=== PATIENT | female | born 1955 | race Two or more races ===

== ENCOUNTER → 2016-11-29 | Outpatient (CLI) | payer BC ==
[~2016-11-29] MED LIST: ADENOSINE 53 MG in GIVE UN-DILUTED 0 ML IV ONE; ADENOSINE 90 MG/30 ML INJ IV ONE
[2016-11-29 13:05] LABS: Basophils # (auto) 0 uL; Basophils % (auto) 0.6 % (0.0-2.0); Eosinophils # (auto) 0.1 uL; Eosinophils % (auto) 1.9 % (0.0-7.0); Hematocrit 39.9 % (36.0-46.0); Hemoglobin 13.5 g/dL (12.2-16.2); Lymphocytes # (auto) 2.5 uL; Lymphocytes % (auto) 33.7 % (10.0-50.0); Mean Corpuscular Hemoglobin 29.6 pg (28.0-32.0); Mean Corpuscular Hgb Conc. 33.9 g/dL (32.0-36.0); Mean Corpuscular Volume 87.3 fL (80.0-100.0); Mean Platelet Volume 7.7 fL (6.9-10.8); Monocytes # (auto) 0.5 uL; Monocytes % (auto) 6.3 % (0.0-12.0); Neutrophils # (auto) 4.2 uL; Neutrophils % (auto) 57.5 % (37.0-80.0); Platelet Count (auto) 290 10^3/uL (140-450); Red Cell Distribution Width 14.5 % (11.8-14.3); White Blood Cell 7.4 10^3/uL (4.4-10.8)
[2016-11-29 13:07] LABS: Urine Bilirubin Negative (Negative); Urine Blood Negative /uL (Negative); Urine Color Yellow (Yellow); Urine Glucose Normal (Normal); Urine Ketone Negative (Negative); Urine Nitrite Negative (Negative); Urine Urobilinogen Normal (Negative)
[2016-11-29 13:26] LABS: BUN/Creatinine Ratio 16.7; Bilirubin, Direct 0.1 mg/dL (0-0.2); Bilirubin, Total 0.4 mg/dL (0.2-1.0); Calcium 9.5 mg/dL (8.5-10.1); Potassium 3.7 mmol/L (3.5-5.1); Total Protein 7.8 g/dL (6.4-8.2)
== END | disposition home or self-care (01) ==
LOC: Rad HDHVI 08:13
PROVIDERS: ATTEND Internal Medicine Cardiovascular Disease
DX: I10 Essential (primary) hypertension (principal); E78.00 Pure hypercholesterolemia, unspecified; K74.1 Hepatic sclerosis; E11.9 Type 2 diabetes mellitus without complications; E03.9 Hypothyroidism, unspecified; D64.9 Anemia, unspecified; E55.9 Vitamin D deficiency, unspecified; N39.0 Urinary tract infection, site not specified
CPT/HCPCS: 36415; 78452; 80048; 80061; 80076; 81003; 82306; 82607; 83036; 84439; 84443; 85025; 93005; 93306; 96374; 96375; A9500; J0153

== ENCOUNTER → 2017-01-09 | Outpatient (CLI) | payer BC | END | disposition home or self-care (01) | LOC: Rad HDHVI 08:02 | PROVIDERS: ATTEND Internal Medicine Cardiovascular Disease | DX: Z13.6 Encounter for screening for cardiovascular disorders (principal) | CPT/HCPCS: 76770 ==

== ENCOUNTER → 2017-03-20 | Outpatient (CLI) | payer BC ==
[2017-03-20 12:26] LABS: Basophils # (auto) 0 uL; Basophils % (auto) 0.4 % (0.0-2.0); Eosinophils # (auto) 0.2 uL; Hematocrit 41.3 % (36.0-46.0); Hemoglobin 13.8 g/dL (12.2-16.2); Lymphocytes # (auto) 2.4 uL; Lymphocytes % (auto) 29.3 % (10.0-50.0); Mean Corpuscular Hemoglobin 29.5 pg (28.0-32.0); Mean Corpuscular Hgb Conc. 33.5 g/dL (32.0-36.0); Monocytes # (auto) 0.4 uL; Monocytes % (auto) 4.9 % (0.0-12.0); Neutrophils # (auto) 5.2 uL; Neutrophils % (auto) 63.4 % (37.0-80.0); Nucleated Red Blood Cells % 0.7 %; Platelet Count (auto) 291 10^3/uL (140-450); Red Cell Distribution Width 14.9 % (11.8-14.3); White Blood Cell 8.3 10^3/uL (4.4-10.8)
[2017-03-20 12:41] LABS: BUN/Creatinine Ratio 15.6; Bilirubin, Total 0.3 mg/dL (0.2-1.0); Calcium 9.4 mg/dL (8.5-10.1); Potassium 4.1 mmol/L (3.5-5.1); Total Protein 7.7 g/dL (6.4-8.2)
[2017-03-20 12:45] LABS: Free T4 (Free Thyroxine) 0.99 ng/dL (0.89-1.76)
== END | disposition home or self-care (01) ==
LOC: LAB 08:03
PROVIDERS: ATTEND Internal Medicine Cardiovascular Disease
DX: E78.00 Pure hypercholesterolemia, unspecified (principal); D64.9 Anemia, unspecified; I10 Essential (primary) hypertension; E11.9 Type 2 diabetes mellitus without complications; E03.9 Hypothyroidism, unspecified; E55.9 Vitamin D deficiency, unspecified; D51.9 Vitamin B12 deficiency anemia, unspecified; N39.0 Urinary tract infection, site not specified
CPT/HCPCS: 36415; 80053; 80061; 82306; 82607; 83036; 84439; 84443; 85025

== ENCOUNTER → 2017-04-23 | Outpatient (CLI) | payer BC | END | disposition home or self-care (01) | LOC: Rad HDHVI 08:21 | PROVIDERS: ATTEND Internal Medicine Cardiovascular Disease | DX: R07.81 Pleurodynia (principal); R09.1 Pleurisy | CPT/HCPCS: 93970 ==

== ENCOUNTER 2018-02-22 18:13 | Inpatient (IN) | payer BC ==
[~2018-02-22] VITALS: Ht 157.5 cm; Wt 67.3 kg
[2018-02-22 19:24] LABS: Basophils # (auto) 0 uL; Basophils % (auto) 0.2 % (0.0-2.0); Eosinophils # (auto) 0 uL; Eosinophils % (auto) 0.1 % (0.0-7.0); Hematocrit 36.8 % (36.0-46.0); Hemoglobin 12.5 g/dL (12.2-16.2); Lymphocytes # (auto) 0.8 uL; Lymphocytes % (auto) 6.1 % (10.0-50.0); Mean Corpuscular Hemoglobin 29.6 pg (28.0-32.0); Mean Corpuscular Hgb Conc. 33.9 g/dL (32.0-36.0); Mean Corpuscular Volume 87.2 fL (80.0-100.0); Monocytes # (auto) 0.1 uL; Monocytes % (auto) 1.2 % (0.0-12.0); Neutrophils # (auto) 11.5 uL; Neutrophils % (auto) 92.4 % (37.0-80.0); Platelet Count (auto) 239 10^3/uL (140-450); Red Blood Cells 4.21 10^6/uL (4.0-5.20); Red Cell Distribution Width 14.5 % (11.8-14.3); White Blood Cell 12.5 10^3/uL (4.4-10.8)
[2018-02-22 19:33] LABS: Albumin 3.7 g/dL (3.4-5.0); Anion Gap 5 (5-15); Blood Urea Nitrogen 14 mg/dL (7-18); Calcium 8.7 mg/dL (8.5-10.1); Carbon Dioxide 26 mmol/L (21-32); Chloride 104 mmol/L (98-107); Glucose 103 mg/dL (74-106); Potassium 3.7 mmol/L (3.5-5.1); Sodium 135 mmol/L (136-145)
[2018-02-22 19:40] LABS: Alanine Aminotransferase 35 U/L (13-56); Alkaline Phosphatase 56 U/L (45-117); Aspartate Aminotransferase 21 U/L (15-37); BUN/Creatinine Ratio 12.6; Bilirubin, Total 0.8 mg/dL (0.2-1.0); GFR African American 64 mL/min; GFR Non-African American 53 mL/min
[2018-02-22 21:17] LABS: Urine Bacteria MANY /hpf (None Seen); Urine Blood Negative /uL (Negative); Urine Specific Gravity 1.006 (1.001-1.035); Urine WBC 4 /hpf (0 - 5)
[2018-02-22] MEDS ORDERED: IOHEXOL 350 MG/ML 100ML IJ ONE (21:18)
[2018-02-22] MEDS ORDERED: ENOXAPARIN SOD 60 MG/0.6 ML SYRINGE SC ONE (22:45)
[2018-02-22] MEDS ORDERED: ACETAMINOPHEN/CODEINE#3 (300/30mg) TAB PO ONE (23:00)
[2018-02-23] MEDS ORDERED: cefTRIAXone 1GM/50ML D5W 50 ML IV ONE ×2 (03:15→13:15)
[2018-02-23] MEDS ORDERED: HYDROcodone-ACET 5/325MG TAB PO PRN (03:15)
[2018-02-23] MEDS ORDERED: ONDANSETRON HCL 4 MG/2 ML VIAL IV PRN (03:15)
[2018-02-23] MEDS: ACETAMINOPHEN 500 MG TAB PO PRN ×2 (04:07→17:38)
[2018-02-23 04:13] LABS: Basophils # (auto) 0 uL; Basophils % (auto) 0.2 % (0.0-2.0); Eosinophils # (auto) 0 uL; Eosinophils % (auto) 0.3 % (0.0-7.0); Hematocrit 38.2 % (36.0-46.0); Hemoglobin 12.8 g/dL (12.2-16.2); Lymphocytes # (auto) 2.7 uL; Lymphocytes % (auto) 19.8 % (10.0-50.0); Mean Corpuscular Hemoglobin 29.5 pg (28.0-32.0); Mean Corpuscular Hgb Conc. 33.6 g/dL (32.0-36.0); Mean Corpuscular Volume 87.9 fL (80.0-100.0); Monocytes # (auto) 0.3 uL; Monocytes % (auto) 2.5 % (0.0-12.0); Neutrophils # (auto) 10.5 uL; Neutrophils % (auto) 77.2 % (37.0-80.0); Platelet Count (auto) 246 10^3/uL (140-450); Red Blood Cells 4.35 10^6/uL (4.0-5.20); Red Cell Distribution Width 14.9 % (11.8-14.3); White Blood Cell 13.6 10^3/uL (4.4-10.8)
[2018-02-23 04:17] VITALS: BP 107/57
[2018-02-23 04:30] LABS: BUN/Creatinine Ratio 12.1; Calcium 8.8 mg/dL (8.5-10.1); Potassium 3.3 mmol/L (3.5-5.1)
[2018-02-23] MEDS ORDERED: HYDR12.56 PO (05:53)
[2018-02-23] MEDS ORDERED: ATEN-60 PO (05:53)
[2018-02-23] MEDS ORDERED: INFLUENZA QUAD 2018-2019 0.5 ML SYRG IM ONE (06:15)
[2018-02-23 09:00] VITALS: BP 81/46
[2018-02-23 12:55] VITALS: BP 119/71
[2018-02-23 16:49] VITALS: BP 117/65
[2018-02-23 22:00] VITALS: BP 108/61
[2018-02-24] MEDS: ACETAMINOPHEN 500 MG TAB PO PRN (00:48)
[2018-02-24 05:00] VITALS: BP 125/70
[2018-02-24] MEDS ORDERED: cefTRIAXone 1GM/50ML D5W 50 ML IV SCH (09:00)
[2018-02-24 09:20] VITALS: BP 122/64
[2018-02-24 11:58] VITALS: BP 121/71
== END 2018-02-24 12:43 | disposition home or self-care (01) | DRG 189 ==
LOC: ER 18:16 → WEST WING 02-23 03:15
PROVIDERS: ADMIT Nurse Practitioner Family; ATTEND Family Medicine
DX: J96.01 Acute respiratory failure with hypoxia (principal); N39.0 Urinary tract infection, site not specified; I12.9 Hypertensive chronic kidney disease with stage 1 through stage 4 chronic kidney disease, or unspecified chronic kidney disease; N18.9 Chronic kidney disease, unspecified; Z87.891 Personal history of nicotine dependence; Z87.442 Personal history of urinary calculi; E11.22 Type 2 diabetes mellitus with diabetic chronic kidney disease; I95.9 Hypotension, unspecified; Z88.1 Allergy status to other antibiotic agents; Z88.0 Allergy status to penicillin
CPT/HCPCS: 36415; 36600; 70450; 71046; 74176; 76775; 78582; 80048; 80053; 81001; 82805; 83735; 83880; 84484; 85025; 85379; 87040; 87086; 87804; 90674; 93005; 93306; 93970; 94761; 96372; 96374; G0378; J0696

== ENCOUNTER → 2018-03-13 | Outpatient (CLI) | payer BC ==
[~2018-03-13] MED LIST changes: -ADENOSINE 53 MG in GIVE UN-DILUTED 0 ML IV ONE; -ADENOSINE 90 MG/30 ML INJ IV ONE; +ATEN-60 PO; +HYDR12.56 PO
[2018-03-13 12:15] LABS: Urine Blood Negative /uL (Negative); Urine Specific Gravity 1.007 (1.001-1.035)
[2018-03-13 12:18] LABS: Basophils # (auto) 0.1 uL; Basophils % (auto) 0.9 % (0.0-2.0); Eosinophils # (auto) 0.1 uL; Eosinophils % (auto) 2.3 % (0.0-7.0); Hematocrit 40.5 % (36.0-46.0); Hemoglobin 13.6 g/dL (12.2-16.2); Lymphocytes # (auto) 2.2 uL; Mean Corpuscular Hemoglobin 29.7 pg (28.0-32.0); Mean Corpuscular Hgb Conc. 33.7 g/dL (32.0-36.0); Mean Corpuscular Volume 88.3 fL (80.0-100.0); Monocytes # (auto) 0.3 uL; Monocytes % (auto) 4.7 % (0.0-12.0); Neutrophils # (auto) 3.6 uL; Neutrophils % (auto) 57.1 % (37.0-80.0); Nucleated Red Blood Cells % 0.5 %; Platelet Count (auto) 340 10^3/uL (140-450); Red Blood Cells 4.59 10^6/uL (4.0-5.20); Red Cell Distribution Width 14.9 % (11.8-14.3); White Blood Cell 6.3 10^3/uL (4.4-10.8)
[2018-03-13 12:32] LABS: Free T4 (Free Thyroxine) 1.21 ng/dL (0.89-1.76)
[2018-03-13 12:56] LABS: Potassium 4.1 mmol/L (3.5-5.1)
[2018-03-13 13:08] LABS: Albumin 3.9 g/dL (3.4-5.0); BUN/Creatinine Ratio 14.6; Bilirubin, Total 0.5 mg/dL (0.2-1.0); Calcium 9.2 mg/dL (8.5-10.1); Total Protein 7.5 g/dL (6.4-8.2)
== END | disposition home or self-care (01) ==
LOC: LAB 07:57
PROVIDERS: ATTEND Internal Medicine
DX: E03.9 Hypothyroidism, unspecified (principal); E11.9 Type 2 diabetes mellitus without complications; E55.9 Vitamin D deficiency, unspecified; D51.9 Vitamin B12 deficiency anemia, unspecified; N39.0 Urinary tract infection, site not specified
CPT/HCPCS: 36415; 80053; 80061; 81003; 82306; 82607; 83036; 84439; 84443; 85025; 87086

== ENCOUNTER 2023-10-03 07:06 | Day surgery (SDC) | payer OTHER ==
[~2023-10-03] VITALS: Ht 157.5 cm; Wt 61.2 kg
[~2023-10-03 07:06] MED LIST changes: +ASPI81CH59 PO; +ATOR-507 PO; +HYDR-3682 PO; -HYDR12.56 PO; +HYDR12.59 PO; +MAGN241.4 PO; +NIFE1TAB31 PO; +[UNRECOGNIZED DRUG - CODE] PO
[2023-10-03 07:24] VITALS: TEMP 97.3
[2023-10-03] MEDS ORDERED: MIDAZOLAM HCL 2MG/2ML 2ml VIAL (1mg/ml) ONE (08:39)
[2023-10-03] MEDS ORDERED: MEPERIDINE HCL (25 MG/ML) 1ML VIAL ONE (08:39)
[2023-10-03] MEDS ORDERED: fentaNYL CITRATE 100 MCG/2 ML VL ONE (08:39)
[2023-10-03] MEDS ORDERED: DexAMETHasone SOD PHOS 10MG/1ML VIAL INJ ONE (08:40)
[2023-10-03] MEDS ORDERED: PROPOFOL 10 MG/ML 20 ML IV ONE (08:40)
[2023-10-03] MEDS ORDERED: KETAMINE 50mg/ML 1ml syringe ONE (08:41)
[2023-10-03 10:01] VITALS: O2SAT 98
[2023-10-03 10:36] VITALS: BP 115/62; PULSE 74; RESP 14; O2SAT 97
== END 2023-10-03 10:54 | disposition home or self-care (01) ==
LOC: GI 07:06
PROVIDERS: ATTEND Internal Medicine Gastroenterology
DX: R93.3 Abnormal findings on diagnostic imaging of other parts of digestive tract (principal); D12.5 Benign neoplasm of sigmoid colon; K57.30 Diverticulosis of large intestine without perforation or abscess without bleeding; I12.9 Hypertensive chronic kidney disease with stage 1 through stage 4 chronic kidney disease, or unspecified chronic kidney disease; N18.9 Chronic kidney disease, unspecified; Z79.899 Other long term (current) drug therapy; Z90.49 Acquired absence of other specified parts of digestive tract; Z90.710 Acquired absence of both cervix and uterus; Z87.891 Personal history of nicotine dependence; Z86.73 Personal history of transient ischemic attack (TIA), and cerebral infarction without residual deficits; Z86.010 Personal history of colon polyps; Z98.890 Other specified postprocedural states; Z88.0 Allergy status to penicillin; Z88.1 Allergy status to other antibiotic agents
CPT/HCPCS: 45380; 88305; J1100; J2175; J2250; J2704; J3010; J7030

== ENCOUNTER 2024-10-11 14:09 | Inpatient (IN) | payer OTHER ==
[~2024-10-11] VITALS: Ht 157.5 cm; Wt 63.0 kg
[2024-10-11 15:05] LABS: Hematocrit 38.8 % (36.0-46.0); Hemoglobin 13.1 g/dL (12.2-16.2); Mean Corpuscular Hemoglobin 28.7 pg (28.0-32.0); Mean Corpuscular Volume 84.7 fL (80.0-100.0); Nucleated Red Blood Cells % 0.0 %
[2024-10-11 15:10] LABS: Chloride 106 mmol/L (98-107); Potassium 4.0 mmol/L (3.5-5.1); Sodium 140 mmol/L (136-145)
[2024-10-11 15:11] LABS: Anion Gap 9 (5-15); Calcium 9.7 mg/dL (8.7-10.4); Carbon Dioxide 25 mmol/L (20-31)
[2024-10-11 15:16] LABS: BUN/Creatinine Ratio 11.5 (10.0-20.0); Blood Urea Nitrogen 13 mg/dL (9-23); Glucose 91 mg/dL (74-106)
--- NOTE | 2024-10-11 15:53 | ED.PDOC ---
General HPI Comments 69 y/o F, with PMHx of kidney stones, CKF, and HTN presents to the ED for CC of flank pain. Patient states, she has been experiencing right sided flank pain x1week. Patient reports, that she was seen at [id number] ago by and had a Lithotripsy to remove stones in the right kidney. Patient relays, she was seen at a follow up appointment and told to have a 7mm stone in the right kidney. Patient denies hematuria, dysuria, nausea, vomiting, or fever. No other symptoms or modifying factors present at this time. Chief Complaint: Flank Pain Time Seen by MD: 15:30 Primary Care Provider: DR. MARCOS Reviewed notes: Nurses Notes, Medications, Allergies Allergies: Coded Allergies: Erythromycin (Verified Allergy, Unknown, 11/29/16) Penicillins (Verified Allergy, Unknown, 11/29/16) Statins (Verified Allergy, Unknown, 02/24/18) Home Meds Reported Medications Riboflavin (Vitamin B-2) 100 Mg Tab, 400 MG PO QPM, TAB 10/02/23 Aspirin (Aspirin Low Dose) 81 Mg Chw, 81 MG PO DAILY, TAB.CHEW 10/02/23 Atorvastatin Calcium (Lipitor) 40 Mg Tab, 40 MG PO QPM, TAB 10/02/23 Magnesium Oxide (Mag-Ox) 400 Mg Tb, 400 MG PO DAILY, TAB 10/02/23 Hydroxyzine Hcl (Hydroxyzine Hcl) 25 Mg Tab, 25 MG PO UD, TAB 10/02/23 Nifedipine (Nifedipine Er) 30 Mg Tab, 30 MG PO QAM, TAB 10/02/23 Hydrochlorothiazide (Hydrochlorothiazide) 12.5 Mg Cap, 12.5 MG PO DAILY for 30 Days, MG 02/23/18 Atenolol (Atenolol) 25 Mg Tab, 25 MG PO DAILY for 30 Days, MG 02/23/18 Information Source: Patient Mode of Arrival: Ambulatory Severity: Moderate Timing: Weeks Duration: Since onset Prehospital treatment: None Onset: Spontaneous History of: None Location: (R) Flank, (L)Flank Modifying factors: None associated signs and symptoms: Flank Pain Past Medical History PAST MEDICAL HISTORY: CKF, HTN Surgical History: Denies all surgeries PAYMENT POSTER History: Denies all PAYMENT POSTER Hx Family History Family History: Unknown Social History Smoker: Non-Smoker Alcohol: Denies ETOH Use Drugs: Denies Drug Use Lives In: Home Constitutional: denies: chills, diaphoresis, fatigue, fever, malaise, sweats, weakness, others EENTM: denies: blurred vision, double vision, ear bleeding, ear discharge, ear drainage, ear pain, ear ringing, eye pain, eye redness, hearing loss, mouth pain, mouth swelling, nasal discharge, nose bleeding, nose congestion, nose pain, photophobia, tearing, throat pain, throat swelling, voice changes, others Respiratory: denies: cough, hemoptysis, orthopnea, SOB at rest, shortness of breath, SOB with excertion, stridor, wheezing, others Cardiovascular: denies: chest pain, dizzy spells, diaphoresis, Dyspnea on exertion, edema, irregular heart beat, left arm pain, lightheadedness, palpitations, PND, syncope, others Gastrointestinal: denies: abdomen distended, abdominal pain, blood streaked bowels, constipated, diarrhea, dysphagia, difficulty swallowing, hematemesis, melena, nausea, poor appetite, poor fluid intake, rectal bleeding, rectal pain, vomiting, others Genitourinary: reports: flank pain; denies: abnormal vagina bleeding, burning, dyspareunia, dysuria, frequency, hematuria, incontinence, pain, , vagina discharge, urgency, others Neurological: denies: dizziness, fainting, headache, left sided numbness, left sided weakness, numbness, paresthesia, pre-existing deficit, right sided numbness, right sided weakness, seizure, speech problems, tingling, tremors, weakness, others Musculoskeletal: denies: back pain, gout, joint pain, joint swelling, muscle pain, muscle stiffness, neck pain, others Integumetry: denies: bruises, change in color, change in hair/nails, dryness, laceration, lesions, lumps, rash, wounds, others Allergic/Immunocompromised: denies: Difficulty Healing, Frequent Infections, Hives, Itching, others Hematologic/Lymphatic: denies: anemia, blood clots, easy bleeding, easy bruising, swollen glands, others Endocrine: denies: excessive hunger, excessive sweating, excessive thirst, excessive urination, flushing, intolerance to cold, intolerance to heat, unexplained weight gain, unexplained weight loss, others Psychiatric: denies: anxiety, bipolar disorder, depression, hopeless, panic disorder, schizophrenia, sleepless, suicidal, others All Other Systems: Reviewed and Negative Physical Exam General Appearance: Moderate Distress HEENT: Normal ENT Inspection, Pharynx Normal, TMs Normal Neck: Full Range of Motion, Non-Tender, Normal, Normal Inspection Respiratory: Chest Non-Tender, Lungs Clear, No Accessory Muscle Use, No Respiratory Distress, Normal Breath Sounds Cardiovascular: No Edema, No JVD, No Murmur, No Gallop, Normal Peripheral Pulses, Regular Rate/Rhythm Breast Exam: Deferred Gastrointestinal: No Organomegaly, Non Tender, No Pulsatile Mass, Normal Bowel Sounds, Soft Genitalia: Deferred Pelvic: Deferred Rectal: Deferred Extremities: No calf tenderness, Normal capillary refill, Normal inspection, Normal range of motion, Non-tender, No pedal edema Musculoskeletal : Apperance: Normal Neurologic: Alert, irish moss operator II-XII nml as Tested, No Motor Deficits, Normal Affect, Normal Mood, No Sensory Deficits Cerebellar Function: Normal Reflexes: Normal Skin: Dry, Normal Color, Warm Peripheral Pulses: 3+ Radial (R), 3+ Radial (L) Lymphatic: No Adenopathy Was a procedure done? Was a procedure done?: No Differential Diagnosis Kidney stone (Female): Pyelonephritis, Urinary obstruction, Urolithiasis Kidney stone (Male): N/A Penile/Scrotal: N/A Urinary Problem (Male): N/A Urinary Problem (Female): UTI X-Ray, Labs, Meds, VS Vital Signs Date Time Temp Pulse Resp B/P (MAP) Pulse Ox O2 Delivery O2 Flow Rate FiO2 10/11/24 14:10 97.9 84 16 144/97 96 97.9 Lab Test 10/11/24 14:44 Range/Units White Blood Count 9.5 4.4-10.8 10^3/uL Red Blood Count 4.58 4.0-5.20 10^6/uL Hemoglobin 13.1 12.2-16.2 g/dL Hematocrit 38.8 36.0-46.0 % Mean Corpuscular Volume 84.7 80.0-100.0 fL Mean Corpuscular Hemoglobin 28.7 28.0-32.0 pg Mean Corpuscular Hemoglobin Concent 33.9 32.0-36.0 g/dL Red Cell Distribution Width 14.4 H 11.8-14.3 % Platelet Count 329 140-450 10^3/uL Mean Platelet Volume 6.8 L 6.9-10.8 fL Neutrophils (%) (Auto) 58.5 37.0-80.0 % Lymphocytes (%) (Auto) 32.6 10.0-50.0 % Monocytes (%) (Auto) 5.3 0.0-12.0 % Eosinophils (%) (Auto) 2.7 0.0-7.0 % Basophils (%) (Auto) 0.9 0.0-2.0 % Neutrophils # (Auto) 5.5 1.6-8.6 10 ^3/uL Lymphocytes # (Auto) 3.1 0.4-5.4 10 ^3/uL Monocytes # (Auto) 0.5 0-1.3 10 ^3/uL Eosinophils # (Auto) 0.3 0-0.8 10 ^3/uL Basophils # (Auto) 0.1 0-0.2 10 ^3/uL Nucleated Red Blood Cells 0.0 % Sodium Level 140 136-145 mmol/L Potassium Level 4.0 3.5-5.1 mmol/L Chloride Level 106 98-107 mmol/L Carbon Dioxide Level 25 20-31 mmol/L Anion Gap 9 5-15 Blood Urea Nitrogen 13 9-23 mg/dL Creatinine 1.13 H 0.550-1.02 mg/dL Glomerular Filtration Rate Calc 53 >90 mL/min BUN/Creatinine Ratio 11.5 10.0-20.0 Serum Glucose 91 74-106 mg/dL Calcium Level 9.7 8.7-10.4 mg/dL Patient alert. Complaining of flank pain. History of kidney stone. Vitals stable. Answering questions. Has been seen by Urology. Continues to have pain. Establish intravenous access. Was given fluids. Was given Toradol. Explained to the patient. Continue monitoring. Time of 1ST Reevaluation: 14:00 Reevaluation 1ST: Unchanged Patient Education/Counseling: Diagnosis, Treatment Family Education/Counseling: No Family Present SEPSIS Sepsis Screen Date sepsis recognized/suspect: Oct 11, 2024 Time Sepsis recognized/suspect: 1412 Recent Procedure: No On Antibiotic Therapy: No Respiratory Rate >20: No Heart Rate >90: No Temp<36 C (96.8 F) or >38.3 C: No SBP <90 or MAP <65 mmHG: No New Acute Mental Status Change: No Is the patient on CPAP, BIPAP,: No Physician Orders Urinalysis (10/11/24 14:15) Vital Signs Date Time Temp Pulse Resp B/P (MAP) Pulse Ox O2 Delivery O2 Flow Rate FiO2 10/11/24 14:10 97.9 84 16 144/97 96 97.9 Laboratory Tests Test 10/11/24 14:44 White Blood Count 9.5 10^3/uL (4.4-10.8) Departure 1 Departure Time of Disposition: 17:08 Impression: Primary Impression: Kidney stone Additional Impression: Acute abdominal pain Disposition: ADMITTED INPATIENT Admit to: Med Surg Condition: Guarded Critical Care Note Critical Care Time?: No Stability Stability form required: No Heart Score Heart Score: Heart Score Response (Comments) Value History N/A 0 EKG N/A 0 Age N/A 0 Risk Factors N/A 0 Troponin N/A 0 Total 0 I personally scribed for SINTIA BARTON MD ([email or web address]) on 10/11/24 at 15:53. Electronically submitted by Frannie Mckay [email or web address]). SINTIA BARTON MD Oct 11, 2024 15:53
[2024-10-11] MEDS: SODIUM CHLORIDE 0.9% 1,000 ML IV ONE ×2 (17:15→18:42)
--- NOTE | 2024-10-11 17:45 | DVH ---
Exam: CT CT AB PEL WO CON-NO ORAL OR IV History: stone Comparison Study: None TECHNIQUE: Multidetector CT of the abdomen was performed from lung bases to pubic symphysis. Imaging was performed without IV contrast. Axial, coronal and sagittal multiplanar reformats were obtained fr om the axial data set by the technologist. Radiation Dose Information: CT Dose: CTDI volume is 9.19 mGy. Dose-length product is 450.66 mGy*cm FINDINGS: Evaluation of solid organs is limited due to lack of intravenous contrast use. Findings: Lung Bases: No acute or significant lung base finding. Normal heart size. No pleural or pericardial effusion. Liver: The liver is normal in size. No focal lesions. 6.1 x 4.8 cm hepatic cyst in the left lobe of the liver. Smaller cyst right lobe of the liver Gallbladder and Biliary Tree: Unremarkable Spleen: Unremarkable Pancreas: The pancreas is grossly normal in appearance. Adrenal Glands: Unremarkable Kidneys: Kidneys are grossly normal without hydronephrosis. 7 8 mm cortical cyst upper pole right ki dney. Nonobstructing 4-5 mm calculus lower pole right kidney Bladder: No bladder calculi or bladder wall thickening. Bowel: The stomach is grossly normal in appearance. Small bowel and colon are normal in caliber and d istribution. The appendix is not visualized; however, no secondary findings of acute appendicitis id entified. Ascites: Absent Lymphadenopathy: No mesenteric, retroperitoneal or periportal lymphadenopathy. Abdominal Wall and Mesentery: Unremarkable. Vasculature: The visualized abdominal aorta is normal in size and caliber. Evaluation of abdominal a nd pelvic vessels is limited due to lack of intravenous contrast. Pelvic Organs: Unremarkable Musculoskeletal: No aggressive focal bony lesions, acute fractures or dislocation. Soft tissues: Unremarkable IMPRESSION: 1. No acute abdominal or pelvic finding. 2. 6.1 cm cyst left lobe of the liver 3. Smaller cyst right lobe of the liver 4. Small cyst upper pole right kidney 5. Nonobstructing 4-5 mm calculus right kidney Radiation optimization: All CT scans at this facility use at least one of these dose optimization jethro hniques: automated exposure control mA and/or kV adjustment per patient size (includes targeted exam s where dose is matched to clinical indication) or iterative reconstruction.
[2024-10-11] MEDS: SODIUM CHLORIDE 0.9% 1,000 ML IV SCH (18:15)
[2024-10-11] MEDS ORDERED: MORPHINE SULFATE INJ 2 MG/ml SYRG IV PRN (18:15)
[2024-10-11] MEDS ORDERED: NITROGLYCERIN 0.4 MG SL TAB SL PRN (18:15)
[2024-10-11] MEDS: SODIUM CHLORIDE 0.9% 500 ML IV ONE (18:15)
--- NOTE | 2024-10-11 18:15 | DVHHP2 ---
History of Present Illness Reason for Visit: Flank pain sent by urologist for further evaluation History of Present Illness 69 y/o F, with PMHx of kidney stones, CKF, and HTN presents to the ED for CC of flank pain. Patient states, she has been experiencing right sided flank pain x1week. Patient reports, that she was seen at [id number] ago by and had a Lithotripsy to remove stones in the right kidney. Patient relays, she was seen at a follow up appointment and told to have a 7mm stone in the right kidney. Patient denies hematuria, dysuria, nausea, vomiting, or fever. No other symptoms or modifying factors present at this time. Past Medical History CKD, HTN, renal stones hypercholesterolemia Past Surgical History History of lithotripsy for renal stones Smoke: No ALCOHOL: occassional Lives: with Family Review of Systems Review of Systems Complains of flank pain. No fevers chills or sweats. No headache dizziness lightheadedness. No chest pain or shortness for breath. Other review of systems reviewed normal. Allergies: Coded Allergies: Erythromycin (Verified Allergy, Unknown, 11/29/16) Penicillins (Verified Allergy, Unknown, 11/29/16) Statins (Verified Allergy, Unknown, 02/24/18) Exam Vital Signs Vital Signs Date Time Temp Pulse Resp B/P (MAP) Pulse Ox O2 Delivery O2 Flow Rate FiO2 10/11/24 14:10 97.9 84 16 144/97 96 97.9 Exam In mild distress. HEENT neck supple no JVD. Heart regular rate and rhythm S1- S2. Lungs fair air movement without rales wheezes. Abdomen soft nontender positive bowel sounds. No significant flank tenderness. Extremities no edema positive pulses. Labs/Xrays Labs Test 10/11/24 14:44 Range/Units White Blood Count 9.5 4.4-10.8 10^3/uL Red Blood Count 4.58 4.0-5.20 10^6/uL Hemoglobin 13.1 12.2-16.2 g/dL Hematocrit 38.8 36.0-46.0 % Mean Corpuscular Volume 84.7 80.0-100.0 fL Mean Corpuscular Hemoglobin 28.7 28.0-32.0 pg Mean Corpuscular Hemoglobin Concent 33.9 32.0-36.0 g/dL Red Cell Distribution Width 14.4 H 11.8-14.3 % Platelet Count 329 140-450 10^3/uL Mean Platelet Volume 6.8 L 6.9-10.8 fL Neutrophils (%) (Auto) 58.5 37.0-80.0 % Lymphocytes (%) (Auto) 32.6 10.0-50.0 % Monocytes (%) (Auto) 5.3 0.0-12.0 % Eosinophils (%) (Auto) 2.7 0.0-7.0 % Basophils (%) (Auto) 0.9 0.0-2.0 % Neutrophils # (Auto) 5.5 1.6-8.6 10 ^3/uL Lymphocytes # (Auto) 3.1 0.4-5.4 10 ^3/uL Monocytes # (Auto) 0.5 0-1.3 10 ^3/uL Eosinophils # (Auto) 0.3 0-0.8 10 ^3/uL Basophils # (Auto) 0.1 0-0.2 10 ^3/uL Nucleated Red Blood Cells 0.0 % Sodium Level 140 136-145 mmol/L Potassium Level 4.0 3.5-5.1 mmol/L Chloride Level 106 98-107 mmol/L Carbon Dioxide Level 25 20-31 mmol/L Anion Gap 9 5-15 Blood Urea Nitrogen 13 9-23 mg/dL Creatinine 1.13 H 0.550-1.02 mg/dL Glomerular Filtration Rate Calc 53 >90 mL/min BUN/Creatinine Ratio 11.5 10.0-20.0 Serum Glucose 91 74-106 mg/dL Calcium Level 9.7 8.7-10.4 mg/dL SEPSIS Sepsis Screen Date sepsis recognized/suspect: Oct 11, 2024 Time Sepsis recognized/suspect: 3 Recent Procedure: No On Antibiotic Therapy: No Respiratory Rate >20: No Heart Rate >90: No Temp<36 C (96.8 F) or >38.3 C: No SBP <90 or MAP <65 mmHG: No New Acute Mental Status Change: No Is the patient on CPAP, BIPAP,: No Physician Orders Urinalysis (10/11/24 14:15) Ct Ab Pel Wo Con-No Oral Or Iv (10/11/24 17:09) Sodium Chloride 0.9% (10/11/24 17:15) Sodium Chloride 0.9% (10/11/24 17:15) Admit (10/11/24 18:06) Cardiac Diet-2gna,Lofat,Lochol (10/11/24 Dinner) * Urology Consult (10/11/24 18:06) PTPTT (10/11/24 18:06) Urinalysis (10/11/24 18:06) Nitroglycerin Sublingual (Ntrostat Subli (10/11/24 18:15) Morphine Sulfate Injection (10/11/24 18:15) Stat Ekg For Chest Pain (10/11/24 18:06) Notify Md Of Changes From Base (10/11/24 18:06) Emergency Dysrhythmia Protocol (10/11/24 18:06) Oxygen By Nasal Cannula (10/11/24 18:06) Ketorolac Injection (Toradol Injection) (10/11/24 18:15) Famotidine Tablet (Pepcid Tablet) (10/12/24 10:00) Ondansetron Hcl (Zofran) (10/11/24 18:15) Hydrocodone-Acet 5/325mg Tab ([place] 5/32 (10/11/24 18:15) NS (10/11/24 18:15) NS (10/11/24 18:15) Tamsulosin Hydrochloride (Flomax) (10/12/24 18:00) Basic Metabolic Panel (10/12/24 04:00) Complete Blood Count (10/12/24 04:00) Vital Signs Date Time Temp Pulse Resp B/P (MAP) Pulse Ox O2 Delivery O2 Flow Rate FiO2 10/11/24 14:10 97.9 84 16 144/97 96 97.9 Laboratory Tests Test 10/11/24 14:44 White Blood Count 9.5 10^3/uL (4.4-10.8) Assessment/Plan Assessment/Plan Urologist is recommending patient to be hospitalized for further evaluation. Given her pain is not controlled in the ER with a treatment we will admit her to medical floor. I will put her on IV pain medications and nausea medications. Aggressive IV hydration. Flomax for diuresis strain urine. Continue home medications. Urology consultation. Otherwise follow clinical management per clinical course. Discussed with the ER physician. Plan discussed with: Patient, Other My Orders Orders - DANTE KWON MD Procedure Category Date Status Time Admit ADMIT 10/11/24 Transmitted 18:06 Cardiac DIET 10/11/24 Transmitted Diet-2gna,Lofat,Lochol Dinner * Urology Consult CONS 10/11/24 Transmitted 18:06 PTPTT LAB 10/11/24 Transmitted 18:06 Urinalysis LAB 10/11/24 Transmitted 18:06 Nitroglycerin PHA 10/11/24 Transmitted Sublingual (Ntrostat 18:15 Morphine Sulfate PHA 10/11/24 Transmitted Injection 18:15 Stat Ekg For Chest ENMA 10/11/24 Transmitted Pain 18:06 Notify Md Of Changes ENMA 10/11/24 Transmitted From Base 18:06 Emergency Dysrhythmia ENMA 10/11/24 Transmitted Protocol 18:06 Oxygen By Nasal RT 10/11/24 Transmitted Cannula 18:06 Ketorolac Injection PHA 10/11/24 Transmitted (Toradol Injection) 18:15 Famotidine Tablet PHA 10/12/24 Transmitted (Pepcid Tablet) 10:00 Ondansetron Hcl PHA 10/11/24 Transmitted (Zofran) 18:15 Hydrocodone-Acet PHA 10/11/24 Transmitted 5/325mg Tab ([place] 18:15 NS PHA 10/11/24 Transmitted 18:15 NS PHA 10/11/24 Transmitted 18:15 Tamsulosin PHA 10/12/24 Transmitted Hydrochloride (Flomax) 18:00 Basic Metabolic Panel LAB 10/12/24 Verified 04:00 Complete Blood Count LAB 10/12/24 Verified 04:00 Problem List: (1) Kidney stone (2) Acute abdominal pain DANTE KWON MD Oct 11, 2024 18:15
[2024-10-11 18:47] LABS: INR 0.97 (0.9-1.15); Partial Thromboplastin Time 26.1 SEC (24.5-34.5); Prothrombin Time 10.3 sec (9.3-11.8)
[2024-10-11] MEDS: KETOROLAC TROMETH 30 MG/ML 1ML VIAL IV PRN (19:18)
[2024-10-11] MEDS: ONDANSETRON HCL 4 MG/2 ML VIAL IV PRN (19:18)
[2024-10-11 21:30] VITALS: PULSE 76; RESP 18; O2SAT 97
[2024-10-11] MEDS: HYDROcodone-ACET 5/325MG TAB PO PRN (21:41)
[2024-10-11] MEDS: FUROSEMIDE 20 MG/2 ML VIAL IV ONE (21:41)
[2024-10-11 21:57] LABS: Urine Protein, UAD Negative (Negative)
[2024-10-12] VITALS (7 sets, daily range): BP systolic 118–174; BP diastolic 66–88; PULSE 57–69; RESP 11–18; TEMP 97.5–97.6; O2SAT 93–96
[2024-10-12 05:54] LABS: Hematocrit 38.8 % (36.0-46.0); Hemoglobin 13.4 g/dL (12.2-16.2); Mean Corpuscular Hemoglobin 28.9 pg (28.0-32.0); Mean Corpuscular Volume 83.8 fL (80.0-100.0); Nucleated Red Blood Cells % 0.0 %
[2024-10-12 06:15] LABS: Anion Gap 9 (5-15); Carbon Dioxide 26 mmol/L (20-31); Potassium 4.3 mmol/L (3.5-5.1); Sodium 142 mmol/L (136-145)
[2024-10-12 06:16] LABS: Calcium 10.0 mg/dL (8.7-10.4)
[2024-10-12 06:21] LABS: Chloride 107 mmol/L (98-107)
[2024-10-12 06:22] LABS: BUN/Creatinine Ratio 10.6 (10.0-20.0); Blood Urea Nitrogen 11 mg/dL (9-23); Glucose 89 mg/dL (74-106)
--- NOTE | 2024-10-12 08:10 | DVHINCON2 ---
Date of service: Oct 12, 2024 Referring Physician hospitalist Reason for Consultation right renal stone History of Present Illness History Source: Patient, RN Notes, MD Notes, Old Records Exam Limitations: No limitations HPI 69 y/o F, with PMHx of kidney stones, CKF, and HTN presents to the ED for CC of flank pain. Patient states, she has been experiencing right sided flank pain x1week. Patient reports, that she was seen at [facility] [id number] ago by and had a Lithotripsy to remove stones in the right kidney. Patient relays, she was seen at a follow up appointment and told to have a 7mm stone in the right kidney. Patient denies hematuria, dysuria, nausea, vomiting, or fever. No other symptoms or modifying factors present at this time. Repeat imaging confirms a 5 mm right renal stone, non obstructing. Home Meds Reported Medications Riboflavin (Vitamin B-2) 100 Mg Tab, 400 MG PO QPM, TAB 10/02/23 Aspirin (Aspirin Low Dose) 81 Mg Chw, 81 MG PO DAILY, TAB.CHEW 10/02/23 Atorvastatin Calcium (Lipitor) 40 Mg Tab, 40 MG PO QPM, TAB 10/02/23 Magnesium Oxide (Mag-Ox) 400 Mg Tb, 400 MG PO DAILY, TAB 10/02/23 Hydroxyzine Hcl (Hydroxyzine Hcl) 25 Mg Tab, 25 MG PO UD, TAB 10/02/23 Nifedipine (Nifedipine Er) 30 Mg Tab, 30 MG PO QAM, TAB 10/02/23 Hydrochlorothiazide (Hydrochlorothiazide) 12.5 Mg Cap, 12.5 MG PO DAILY for 30 Days, MG 02/23/18 Atenolol (Atenolol) 25 Mg Tab, 25 MG PO DAILY for 30 Days, MG 02/23/18 Past Medical History Patient Family History: Diabetes mellitus G8 FATHER Hypertension G8 FATHER Smoker: No Hx (Negative) Alocohol: None Drugs: None Domestic Violence: Neg Review of Systems Gastrointestinal: Abdominal Pain Genitourinary: Pain H&P Exam Vital Signs Vital Signs Date Time Temp Pulse Resp B/P (MAP) Pulse Ox O2 Delivery O2 Flow Rate FiO2 10/12/24 03:15 97.4 77 16 118/73 (88) 98 97.4 10/11/24 21:30 Room Air* 0 21 General Appeara: Well developed, Well nourished, Normal Appearance Neuro/Mental St: Alert, Oriented Appearance: Appropriate appearance, Appropriate insight Eye contact/ Speech: Cooperative, Good eye contact, Normal speech Skin Exam: Normal inspection, Normal color, Warm/dry Labs/Xrays [address] [address] Ph: [phone] DIAGNOSTIC IMAGING Diagnostic Imaging Report : [id number] Signed PATIENT: MELISSA GASPAR ACCT: [id number] UNIT: [id number] : 1955 LOC: ER ROOM / BED: / AGE / SEX: 69 / F ADM STATUS: REG ER SERVICE [id number] ORDERING PHYSICIAN: SINTIA BARTON MD PROCEDURE(s): ABPL - CT AB PEL WO CON-NO ORAL OR IV REASON: stone ORDER NUMBER(s): [id number], ACCESSION NUMBER(s): [id number] Exam: CT CT AB PEL WO CON-NO ORAL OR IV History: stone Comparison Study: None TECHNIQUE: Multidetector CT of the abdomen was performed from lung bases to pubic symphysis. Imaging was performed without IV contrast. Axial, coronal and sagittal multiplanar reformats were obtained from the axial data set by the technologist. Radiation Dose Information: CT Dose: CTDI volume is 9.19 mGy. Dose-length product is 450.66 mGy*cm FINDINGS: Evaluation of solid organs is limited due to lack of intravenous contrast use. Findings: Lung Bases: No acute or significant lung base finding. Normal heart size. No pleural or pericardial effusion. Liver: The liver is normal in size. No focal lesions. 6.1 x 4.8 cm hepatic cyst in the left lobe of the liver. Smaller cyst right lobe of the liver Gallbladder and Biliary Tree: Unremarkable Spleen: Unremarkable Pancreas: The pancreas is grossly normal in appearance. Adrenal Glands: Unremarkable Kidneys: Kidneys are grossly normal without hydronephrosis. 7 8 mm cortical cyst upper pole right kidney. Nonobstructing 4-5 mm calculus lower pole right kidney Bladder: No bladder calculi or bladder wall thickening. Bowel: The stomach is grossly normal in appearance. Small bowel and colon are normal in caliber and distribution. The appendix is not visualized; however, no secondary findings of acute appendicitis identified. Ascites: Absent Lymphadenopathy: No mesenteric, retroperitoneal or periportal lymphadenopathy. Abdominal Wall and Mesentery: Unremarkable. Vasculature: The visualized abdominal aorta is normal in size and caliber. Evaluation of abdominal and pelvic vessels is limited due to lack of intravenous contrast. Pelvic Organs: Unremarkable Musculoskeletal: No aggressive focal bony lesions, acute fractures or dislocation. Soft tissues: Unremarkable IMPRESSION: 1. No acute abdominal or pelvic finding. 2. 6.1 cm cyst left lobe of the liver 3. Smaller cyst right lobe of the liver 4. Small cyst upper pole right kidney 5. Nonobstructing 4-5 mm calculus right kidney Radiation optimization: All CT scans at this facility use at least one of these dose optimization techniques: automated exposure control mA and/or kV adjustment per patient size (includes targeted exams where dose is matched to clinical indication) or iterative reconstruction. ATED BY: ALISIA NELSON Jr., DO DICTATED DATE/TIME: 10/11/241742 SIGNED BY: ALISIA NELSON Jr., SIGNED DATE/TIME: 10/11/241742 CC: Labs Test 10/12/24 05:40 10/11/24 21:06 10/11/24 14:44 Range/Units White Blood Count 7.9 4.4-10.8 10^3/uL Red Blood Count 4.63 4.0-5.20 10^6/uL Hemoglobin 13.4 12.2-16.2 g/dL Hematocrit 38.8 36.0-46.0 % Mean Corpuscular Volume 83.8 80.0-100.0 fL Mean Corpuscular Hemoglobin 28.9 28.0-32.0 pg Mean Corpuscular Hemoglobin Concent 34.5 32.0-36.0 g/dL Red Cell Distribution Width 15.1 H 11.8-14.3 % Platelet Count 308 140-450 10^3/uL Mean Platelet Volume 6.7 L 6.9-10.8 fL Neutrophils (%) (Auto) 56.4 37.0-80.0 % Lymphocytes (%) (Auto) 34.4 10.0-50.0 % Monocytes (%) (Auto) 5.7 0.0-12.0 % Eosinophils (%) (Auto) 2.9 0.0-7.0 % Basophils (%) (Auto) 0.6 0.0-2.0 % Neutrophils # (Auto) 4.5 1.6-8.6 10 ^3/uL Lymphocytes # (Auto) 2.7 0.4-5.4 10 ^3/uL Monocytes # (Auto) 0.5 0-1.3 10 ^3/uL Eosinophils # (Auto) 0.2 0-0.8 10 ^3/uL Basophils # (Auto) 0 0-0.2 10 ^3/uL Nucleated Red Blood Cells 0.0 % Sodium Level 142 136-145 mmol/L Potassium Level 4.3 3.5-5.1 mmol/L Chloride Level 107 98-107 mmol/L Carbon Dioxide Level 26 20-31 mmol/L Anion Gap 9 5-15 Blood Urea Nitrogen 11 9-23 mg/dL Creatinine 1.04 H 0.550-1.02 mg/dL Glomerular Filtration Rate Calc 59 >90 mL/min BUN/Creatinine Ratio 10.6 10.0-20.0 Serum Glucose 89 74-106 mg/dL Calcium Level 10.0 8.7-10.4 mg/dL Urine Color Light-yellow Yellow Urine Clarity Clear Clear Urine pH 6.5 5.0-9.0 Urine Specific [place] 1.006 1.001-1.035 Urine Protein Negative Negative Urine Ketones Negative Negative Urine Blood Negative Negative /uL Urine Nitrite Negative Negative Urine Bilirubin Negative Negative Urine Urobilinogen Normal Negative mg/dL Urine Leukocyte Esterase Negative Negative /uL Urine Glucose Normal Normal mg/dL Prothrombin Time 10.3 9.3-11.8 sec Prothrombin Time INR 0.97 0.9-1.15 Activated Partial Thromboplast Time 26.1 24.5-34.5 SEC Assessment/Plan Problem List: (1) Kidney stone (2) Acute abdominal pain Plan right ESWL NPO Plan discussed with: Patient FEROZ VEGAS CLERK SPECIALIST Oct 12, 2024 08:10
[2024-10-12] MEDS: ATENOLOL 25 MG TAB PO SCH (10:16)
[2024-10-12] MEDS: FAMOTIDINE 20 MG TAB PO SCH (10:17)
[2024-10-12] MEDS: MAGNESIUM OXIDE 400 MG TAB PO SCH (10:17)
--- NOTE | 2024-10-12 16:12 | DVHPN2 ---
Progress Note - Dictate Date Seen: Oct 12, 2024 Medical Necessity Reason Pt with a Central, PICC or Fol: No Subjective Patient is undergoing right kidney ESWL procedure by Urology. vital signs Vital Sign Date Time Temp Pulse Resp B/P (MAP) Pulse Ox O2 Delivery O2 Flow Rate FiO2 10/12/24 14:21 97.6 64 17 174/80 (111) 96 97.6 10/12/24 12:25 Room Air* 0 21 medications Current Medications Medications Dose Ordered Sig/Chayo Route Start Time Stop Time Status Last Admin Dose Admin Nitroglycerin 0.4 mg Q5MINP PRN SL 10/11/24 18:15 Morphine Sulfate 2 mg Q30M PRN IV 10/11/24 18:15 Ketorolac Tromethamine 30 mg Q6HPRN PRN IV 10/11/24 18:15 10/16/24 18:14 10/12/24 10:19 30 MG Famotidine 20 mg DAILY PO 10/12/24 10:00 10/12/24 10:17 20 MG Ondansetron HCl 4 mg Q4HPRN PRN IV 10/11/24 18:15 10/11/24 19:18 4 MG Acetaminophen/ Hydrocodone Bitart 1 tab Q4HPRN PRN PO 10/11/24 18:15 10/12/24 06:00 1 TAB Sodium Chloride 1,000 ml @ 125 mls/hr Q8H IV 10/11/24 18:15 Tamsulosin HCl 0.4 mg QPM PO 10/12/24 18:00 Atenolol 25 mg DAILY PO 10/12/24 10:00 10/12/24 10:16 25 MG Nifedipine 30 mg QAM PO 10/12/24 07:00 10/12/24 07:00 30 MG Atorvastatin Calcium 40 mg QPM PO 10/12/24 18:00 Magnesium Oxide 400 mg DAILY PO 10/12/24 10:00 10/12/24 10:17 400 MG Clonidine HCl 0.1 mg Q6HP PRN PO 10/11/24 18:30 10/12/24 13:58 0.1 MG objective Alert awake oriented x3. HEENT neck supple no JVD. Heart regular rate and rhythm S1-S2. Lungs without rales wheezes. Abdomen soft nontender positive bowel sounds. Extremities no edema positive pulses laboratory and microbiology Laboratory Tests 10/12/24 05:40 Test 10/12/24 05:40 Range/Units Serum Glucose 89 74-106 mg/dL Assessment/Plan Continue present management. Proceed with a ESWL right kidney has scheduled today. Further clinical management per postop recovery and recommendations from a Urology. Discussed with the nurse. Problems(with codes): (1) Kidney stone (2) Acute abdominal pain Plan discussed with: Other DANTE KWON MD Oct 12, 2024 16:11
[2024-10-12] MEDS ORDERED: MIDAZOLAM HCL 2MG/2ML 2ml VIAL (1mg/ml) ONE (17:06)
[2024-10-12] MEDS ORDERED: fentaNYL CITRATE 100 MCG/2 ML VL ONE (17:06)
[2024-10-12] MEDS ORDERED: PROPOFOL 10 MG/ML 20 ML IV ONE (17:07)
[2024-10-12] MEDS ORDERED: METOCLOPRAMIDE HCL 5MG/ml INJ 2ml VIAL ONE (17:07)
[2024-10-12] MEDS ORDERED: ONDANSETRON HCL 4 MG/2 ML VIAL ONE (17:07)
[2024-10-12] MEDS: CIPROFLOXACIN 400MG/200ML 200 ML IV ONE (17:14)
[2024-10-12] MEDS: IOHEXOL 300 MG/ML 100ML BOTTLE IJ ONE (17:38)
[2024-10-12] MEDS: TAMSULOSIN HYDROCHLORIDE 0.4 MG CAP PO SCH (18:00)
[2024-10-12] MEDS: ATORVASTATIN 20 MG TAB PO SCH (18:00)
--- NOTE | 2024-10-12 18:11 | DVHNC2 ---
Procedure - OPERATIVE REPORT Pre-op. Diagnosis: Renal Stone- right lower pole 5 mm Post-op. Diagnosis: Same as pre-op diagnosis Operation: Extracorporeal Shockwave Lithotripsy Anesthesia: General Indications: Patient was found to have symptomatic Urolithiasis. Patient is here to undergo ESWL therapy. Informed Consent: The procedure was explained to the patient. It's risks include but not limited to infection, bleeding, and damage to the kidney. Patient fully understood and signed the consent. Other options such as watchful waiting, Ureteroscopy, Percutaneous surgery and open surgery were also discussed. Details of Procedure: Under satisfactory anesthesia, the patient was positioned on the lithotripsy table. Using fluoroscopy the stone was localized with aid by IV contrast 100 ml. Lower pole 5 mm stone was placed on the F2 focus. Starting at low energy levels, shockwave treatment was commenced. The energy level was gradually increased and stone was fragmented. Once the treatment was completed, patient was then taken off the lithotripsy table and sent to recovery room in stable condition. Specimens: None Complications: None Findings: Stone Laterality: right lower pole 5 mm stone Shocks Delivered: 2200 Max Power settin Fragmentation Quality: Well Notes: Diagnosis: Visit Code: Procedure Codes: 33652 FRAGMENTING OF KIDNEY STONE. YAEL RIVERA MD Oct 12, 2024 18:11
[2024-10-12] MEDS ORDERED: ONDANSETRON HCL 4 MG/2 ML VIAL IV ONE (18:30)
[2024-10-12] MEDS ORDERED: HYDROmorphone HCL 2 MG/ML VL/or syr IV PRN (18:30)
[2024-10-12] MEDS ORDERED: hydrALAZINE HCL 20 MG/ML VL IV PRN (18:30)
[2024-10-13 01:00] VITALS: BP 101/59; PULSE 64; RESP 18; TEMP 97.5; O2SAT 93
[2024-10-13 05:00] VITALS: BP 100/62; PULSE 63; RESP 18; TEMP 98.1; O2SAT 95
[2024-10-13 09:00] VITALS: BP 132/84; PULSE 65; RESP 16; TEMP 98.2; O2SAT 97
[2024-10-13 13:00] VITALS: BP 119/71; PULSE 60; RESP 15; TEMP 98.1; O2SAT 96
--- NOTE | 2024-10-13 14:44 | DVHDS2 ---
Discharge Summary Date of Admission Oct 11, 2024 at 18:06 Date of Discharge: Oct 13, 2024 Labs/Diagnostic Data: Laboratory Results Test 10/12/24 05:40 10/11/24 21:06 10/11/24 14:44 White Blood Count 7.9 10^3/uL (4.4-10.8) Red Blood Count 4.63 10^6/uL (4.0-5.20) Hemoglobin 13.4 g/dL (12.2-16.2) Hematocrit 38.8 % (36.0-46.0) Mean Corpuscular Volume 83.8 fL (80.0-100.0) Mean Corpuscular Hemoglobin 28.9 pg (28.0-32.0) Mean Corpuscular Hemoglobin Concent 34.5 g/dL (32.0-36.0) Red Cell Distribution Width 15.1 % (11.8-14.3) Platelet Count 308 10^3/uL (140-450) Mean Platelet Volume 6.7 fL (6.9-10.8) Neutrophils (%) (Auto) 56.4 % (37.0-80.0) Lymphocytes (%) (Auto) 34.4 % (10.0-50.0) Monocytes (%) (Auto) 5.7 % (0.0-12.0) Eosinophils (%) (Auto) 2.9 % (0.0-7.0) Basophils (%) (Auto) 0.6 % (0.0-2.0) Neutrophils # (Auto) 4.5 10 ^3/uL (1.6-8.6) Lymphocytes # (Auto) 2.7 10 ^3/uL (0.4-5.4) Monocytes # (Auto) 0.5 10 ^3/uL (0-1.3) Eosinophils # (Auto) 0.2 10 ^3/uL (0-0.8) Basophils # (Auto) 0 10 ^3/uL (0-0.2) Nucleated Red Blood Cells 0.0 % Sodium Level 142 mmol/L (136-145) Potassium Level 4.3 mmol/L (3.5-5.1) Chloride Level 107 mmol/L (98-107) Carbon Dioxide Level 26 mmol/L (20-31) Anion Gap 9 (5-15) Blood Urea Nitrogen 11 mg/dL (9-23) Creatinine 1.04 mg/dL (0.550-1.02) Glomerular Filtration Rate Calc 59 mL/min (>90) BUN/Creatinine Ratio 10.6 (10.0-20.0) Serum Glucose 89 mg/dL (74-106) Calcium Level 10.0 mg/dL (8.7-10.4) Urine Color Light-yellow (Yellow) Urine Clarity Clear (Clear) Urine pH 6.5 (5.0-9.0) Urine Specific [place] 1.006 (1.001-1.035) Urine Protein Negative (Negative) Urine Ketones Negative (Negative) Urine Blood Negative /uL (Negative) Urine Nitrite Negative (Negative) Urine Bilirubin Negative (Negative) Urine Urobilinogen Normal mg/dL (Negative) Urine Leukocyte Esterase Negative /uL (Negative) Urine Glucose Normal mg/dL (Normal) Prothrombin Time 10.3 sec (9.3-11.8) Prothrombin Time INR 0.97 (0.9-1.15) Activated Partial Thromboplast Time 26.1 SEC (24.5-34.5) Other Laboratory Tests 10/12/24 05:40 Brief Hx & Hospital Course: 69 y/o F, with PMHx of kidney stones, CKF, and HTN presents to the ED for CC of flank pain. Patient states, she has been experiencing right sided flank pain x1week. Patient reports, that she was seen at [facility] [id number] ago by and had a Lithotripsy to remove stones in the right kidney. Patient relays, she was seen at a follow up appointment and told to have a 7mm stone in the right kidney. Patient denies hematuria, dysuria, nausea, vomiting, or fever. No other symptoms or modifying factors present at this time. She is admitted and evaluated by urologist and underwent successful lithotripsy procedure. Postop patient monitored overnight and doing well. Her flank pain has resolved. Urinating well. Therefore it is felt she could be safely discharged home. However he is advised to follow up with the urologist next week as mentioned. Patient verbalized understanding of this and verbalized understanding over hospital diagnosis, treatment and procedures received, discharge medications and agree with the discharge follow-up plan of care as mentioned Operations or Procedures Procedure - OPERATIVE REPORT Pre-op. Diagnosis: Renal Stone- right lower pole 5 mm Post-op. Diagnosis: Same as pre-op diagnosis Operation: Extracorporeal Shockwave Lithotripsy Anesthesia: General Indications: Patient was found to have symptomatic Urolithiasis. Patient is here to undergo ESWL therapy. Informed Consent: The procedure was explained to the patient. It's risks include but not limited to infection, bleeding, and damage to the kidney. Patient fully understood and signed the consent. Other options such as watchful waiting, Ureteroscopy, Percutaneous surgery and open surgery were also discussed. Details of Procedure: Under satisfactory anesthesia, the patient was positioned on the lithotripsy table. Using fluoroscopy the stone was localized with aid by IV contrast 100 ml. Lower pole 5 mm stone was placed on the F2 focus. Starting at low energy levels, shockwave treatment was commenced. The energy level was gradually increased and stone was fragmented. Once the treatment was completed, patient was then taken off the lithotripsy table and sent to recovery room in stable condition. Specimens: None Complications: None Findings: Stone Laterality: right lower pole 5 mm stone Shocks Delivered: 2200 Max Power settin Fragmentation Quality: Well Notes: Diagnosis: Visit Code: Procedure Codes: 20090 FRAGMENTING OF KIDNEY STONE. YAEL RIVERA MD Oct 12, 2024 18:11 Condition at Discharge: Stable Final Diagnosis/Problems List Renal stone status post ESWL procedure Discharge Disposition: Home Discharge Instruct/Medications Diet: Consistent carbohydrate, Cardiac 2g Na,low cholest Activity: No Restrictions, As Tolerated Follow Up/Referral: Urology Dr. Brad Valle next week follow up Medications: Home medications Scheduled Aspirin (Aspirin Low Dose), 81 MG PO DAILY, (Reported) Atenolol (Atenolol), 25 MG PO DAILY, (Reported) Atorvastatin Calcium (Lipitor), 40 MG PO QPM, (Reported) Hydrochlorothiazide (Hydrochlorothiazide), 12.5 MG PO DAILY, (Reported) Hydroxyzine Hcl (Hydroxyzine Hcl), 25 MG PO UD, (Reported) Magnesium Oxide (Mag-Ox), 400 MG PO DAILY, (Reported) Nifedipine (Nifedipine Er), 30 MG PO QAM, (Reported) Riboflavin (Vitamin B-2), 400 MG PO QPM, (Reported) Discharge Statement: "Patient was advised to return to the ER or call 911 if any headaches, dizziness, shortness of breath, chest pain, abdominal pain, bleeding, fevers, or worsening of medical condition. Patient was counseled about treatment plan, medications, possible side effects, patientverbalized understanding. All questions were answered to the best of my ability. This discharge took greater then 30 minutes in planning, reviewing documentation, counseling the patient, and discussing with other team members." ASSESSMENT ASSESSMENT Assessment Renal stone status post ESWL procedure DANTE KWON MD Oct 13, 2024 14:44
[2024-10-13 15:28] VITALS: BP 132/84; PULSE 65
== END 2024-10-13 17:06 | disposition home or self-care (01) | DRG 694 ==
LOC: ER 14:09 → OVERFLOW 18:06 → WEST WING 10-12 12:59
PROVIDERS: ADMIT Hospitalist; ATTEND Hospitalist
PROC: 0TF3XZZ Fragmentation in Right Kidney Pelvis, External Approach (ICD-10-PCS; principal; 2024-10-12 17:14)
DX: N20.0 Calculus of kidney (principal); N18.9 Chronic kidney disease, unspecified; I12.9 Hypertensive chronic kidney disease with stage 1 through stage 4 chronic kidney disease, or unspecified chronic kidney disease; E78.00 Pure hypercholesterolemia, unspecified; Z88.1 Allergy status to other antibiotic agents; Z88.0 Allergy status to penicillin; Z87.442 Personal history of urinary calculi; Z79.82 Long term (current) use of aspirin; Z79.899 Other long term (current) drug therapy; Z83.3 Family history of diabetes mellitus; Z82.49 Family history of ischemic heart disease and other diseases of the circulatory system
CPT/HCPCS: 36415; 74176; 80048; 81003; 85025; 85610; 85730; 96360; G0378; J1885; J2250; J2405; J2704